=== PATIENT | male | born 1960 | race Caucasian/White ===

== ENCOUNTER 2022-05-06 16:19 | Outpatient (CLI) | payer BC, SELFPAY ==
--- NOTE | ~2022-05-06 | US_ITS ---
EXAMINATION: US venous doppler [facility] DATE: 05/06/2022 16:56 INDICATION: Swelling . TECHNIQUE: Grayscale images without and with compression and Doppler images of the left lower extremi ty veins were obtained. COMPARISON: None FINDINGS: The left common femoral vein, profunda femoral vein, femoral vein, popliteal vein, peroneal vein, pos terior tibial veins, lesser and greater saphenous veins are patent. IMPRESSION: 1. Patent left lower extremity veins. No evidence of deep venous thrombosis Reviewed, dictated and finalized at location K.
[2022-05-06 18:06] LABS: CRP 0.8 mg/dL (<1.0); Uric Acid 5.4 mg/dL (3.5-8.5)
[2022-05-06 18:07] LABS: Erythrocyte Sedimentation Rate 11 mm/hr (0-20)
[2022-05-06 19:10] LABS: Rheumatoid Factor < 8.6 IU/ML (<12)
== END 2022-05-06 16:20 | disposition home or self-care (01) ==
PROVIDERS: PCP Registered Nurse; Visit Provider Orthopaedic Surgery
DX: M25.562 Pain in left knee (principal)
CPT/HCPCS: 36415; 84550; 85652; 86038; 86140; 86430; 93971

== ENCOUNTER 2022-06-06 12:47 | Outpatient (CLI) | payer BC, SELFPAY ==
[2022-06-06 13:01] LABS: Basophils Absolute Auto 0.1 K/mm3 (0.0-0.1); Basophils Percent Auto 1.4 % (0.2-1.2); Eosinophils Absolute Auto 0.5 K/mm3 (0-0.3); Eosinophils Percent Auto 5.6 % (0-4.4); Hematocrit 43.9 % (42.0-52.0); Hemoglobin 14.5 g/dL (14.0-18.0); Immature Granulocyte Absolute 0.05 K/mm3 (0.00-0.031); Immature Granulocyte Percent A 0.5 % (0-0.5); Lymphocytes Absolute Auto 1.47 K/mm3 (0.9-3.2); Lymphocytes Percent Auto 15.4 % (18.3-44.2); Mean Corpuscular Hemoglobin 29.4 pg (26-34); Mean Corpuscular Volume 88.9 fl (80-100); Mean Platelet Volume 8.9 fl (7.4-10.4); Monocytes Absolute Auto 1.1 K/mm3 (0.1-0.6); Monocytes Percent Auto 11.4 % (2.6-8.5); Neutrophils Absolute Auto 6.3 K/mm3 (1.3-6.7); Neutrophils Percent Auto 65.7 % (45.5-73.1); Platelet Count Result 334 k/mm3 (150-375); Red Blood Count 4.94 M/mm3 (4.6-6.20); Red Cell Distribution Width 13.8 % (11.5-14.5); White Blood Count 9.5 K/mm3 (4.5-10.0)
== END 2022-06-06 12:48 | disposition home or self-care (01) ==
LOC: ANHLAB 12:48
PROVIDERS: PCP Registered Nurse; Visit Provider Orthopaedic Surgery
DX: M25.562 Pain in left knee (principal)
CPT/HCPCS: 36415; 85025

== ENCOUNTER → 2022-06-30 09:31 | Outpatient (CLI) | payer BC, SELFPAY ==
--- NOTE | ~2022-06-30 | MR_ITS ---
EXAMINATION: MR knee LT wo con DATE: 06/30/2022 10:16 INDICATION: Left knee pain. TECHNIQUE: Magnetic resonance imaging (MRI) of the left knee was performed without intravenous contra st. Sequences included axial PD-weighted FS FSE, coronal PD-weighted FSE and PD-weighted FS FSE, sagi ttal PD-weighted FSE, and sagittal T2-weighted FS FSE. COMPARISON: Left tibia and fibula radiographs 06/10/2022 FINDINGS: Medial compartment: Medial meniscus is normal. Tibial cartilage is normal. There is shallow partial-thickness cartilage l oss of femoral condyle involving the central articular surface. Lateral compartment: Lateral meniscus is normal. There is shallow partial-thickness cartilage loss of tibial condyle invol ving the central and posterior articular surface. There is deep partial thickness cartilage loss of f emoral condyle involving the central articular surface. Patellofemoral compartment: There is deep partial thickness cartilage loss of patellar medial and lateral facets and median ridge with mild subchondral edema-like marrow signal intensity and small subchondral cyst. There is partia l thickness cartilage loss of trochlea, deep at the medial and lateral trochlea with mild subchondral edema-like marrow signal intensity. Osteophytes are noted. Ligaments and tendons: The anterior and posterior cruciate ligaments are normal. There are changes of prior sprains of media l collateral ligament and fibular collateral ligament characterized by increased signal intensity pro ximally. There is mild patellar tendinopathy. Fluid: There is a small knee joint effusion. There is a small Stewart's cyst. There is mild prepatellar and hdez perficial infrapatellar bursitis. IMPRESSION: 1. 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 2. Small knee joint effusion. 3. Small Stewart's cyst. Reviewed, dictated and finalized at location A. IMPRESSION: 1. 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 2. Small knee joint effusion. 3. Small Stewart's cyst.
== END ==
PROVIDERS: PCP Registered Nurse; Visit Provider Orthopaedic Surgery
DX: M25.462 Effusion, left knee (principal); M71.22 Synovial cyst of popliteal space [Baker], left knee
CPT/HCPCS: 73721

== ENCOUNTER 2022-11-30 01:08 | Day surgery (SDC) | payer BC, SELFPAY ==
[2022-11-17 10:04] VITALS: BMI 36.8
--- NOTE | 2022-11-17 10:13 | PC.NURSE ---
Report to the Outpatient Waiting Room, entrance under the green pavilion located off [facility], at time 11:30 AM on date 11/30/22. Planned Procedure Time: 1:30 PM. Time changes happen often and if your time is changed the preop area will call you the afternoon before. - You and your visitor will be asked to self-screen and do not enter if you have any COVID symptoms. - Only one visitor is requested with a max of two and NO children visitors are allowed at this time. - The patient visitor may be requested to leave or wait in car when not with patient due to distancing restrictions. - A mask is optional within the hospital. Patients may have clear liquids (water, carbonated beverages, clear teas, apple juice) until 3 hours prior to surgery (10:30AM) with a maximum of 20 ounces. - No food from midnight until time of surgery Take the following medications with a SIP of water the morning of surgery: N/A PATIENT TAKES ALL MEDS AT BEDTIME Medications to discontinue per physician N/A Date to take last dose N/A Please no make-up, nail sudanese, hairspray, perfume, deodorant, or body powder the day of surgery. No jewelry (including any body piercings) or valuables the day of surgery, leave them at home. Please take a shower or bath the night before, or the morning of, surgery with an antibacterial soap. Wear comfortable, loose fitting clothing. - Jewelry must be removed prior to entering the operating room. Rings and piercings that are not removed may be cut off. - The hospital will not accept responsibility for valuables. - Please leave all valuables, including medications, at home the day of surgery. If you are going home after surgery, a licensed special education bus driver must drive you home. - NO public transportation without another adult if you receive anesthesia. - We recommend that an adult stay with you for 24 hours following discharge. - We also recommend that you do not drive, make important decision, drink alcoholic beverages, or take any drugs that were not prescribed by your health care provider for at least 24 hours after your discharge time. Follow any additional instructions given to you from your surgeon. If you or anyone in your household have experienced Covid symptoms in the past week, please notify your surgeon or the nurse liaison at the phone number below for possible testing. Telephone instructions given to PATIENT and asked if any additional questions and then verbalized understanding. Patient advised to call surgeon office or pre surgery nurse liaison [phone] if any additional questions.
[2022-11-30] VITALS (9 sets, daily range): BP systolic 136–155; BP diastolic 73–108; PULSE 61–79; RESP 10–18; TEMP 36.2–36.8; O2SAT 99–100
[2022-11-30] MEDS: KETOROLAC 15 MG/ML VIAL (*BKC) IV PUSH (12:20)
[2022-11-30] MEDS: ACETAMINOPHEN 500 MG TABLET 1000 MG PO (12:20)
[2022-11-30] MEDS: LACTATED RINGERS 1,000 ML 30 ML IV CONT (12:20)
--- NOTE | 2022-11-30 12:45 | P.PNAN_ITS ---
Anes - Initial Pre Proc Eval Procedure: Operation Date: 11/30/22 13:30 Proposed Procedures p Diagnostic Left Knee Arthroscopy, Proceed As Indicated - Kaveh Joyner MD Date/Time: 11/30/22 12:45 Surgeon: Kaveh Joyner MD Pre Op Diagnosis: Lt Knee Pain Patient Data Age: 62 Gender: M Height: 1.8 m Weight: 123 kg Last Vital Signs Temp 36.2 C L 11/30/22 12:27 Pulse 66 11/30/22 12:27 Resp 14 11/30/22 12:27 BP 149/73 H 11/30/22 12:27 Pulse Ox 99 11/30/22 12:27 O2 Del Method Room Air 11/30/22 12:27 Allergies Allergy/AdvReac Type Severity Reaction Status Date / Time prednisone AdvReac Severe Anxiety Verified 11/18/22 13:00 hydrocodone AdvReac Mild Hallucinati Verified 11/18/22 13:00 ng meloxicam AdvReac Mild Hypertensio Verified 11/18/22 13:00 n meperidine AdvReac Mild Hallucinati Verified 11/18/22 13:00 ng Home Medications Medication Instructions Recorded Confirmed Type gabapentin 600 mg tablet 600 mg PO DAILY 05/07/22 11/18/22 History (Neurontin) ropinirole 0.25 mg tablet 0.25 mg PO BID 05/07/22 11/18/22 History zolpidem 5 mg tablet (Ambien) 10 mg PO QHS PRN Insomnia 05/07/22 11/18/22 History albuterol 90 mcg/actuation aerosol 90 mcg inhalation PRN PRN 11/17/22 11/18/22 History inhaler Shortness Of Breath budesonide-formoterol HFA 160 1 puff inhalation PRN PRN Wheezing 11/17/22 11/18/22 History mcg-4.5 mcg/actuation aerosol inhaler (Symbicort) Patient hx anesthesia problems: none Family hx anesthesia problems: none Results Review: All pre-operative results and documents have been reviewed as part of the pre- operative evaluation. [facility] Past Medical History Medical History (Updated 11/30/22 @ 12:45 by Mir Alfred MD) Allergies Asthma Obesity Surgical History Surgical History History of colon surgery History of hernia repair History of shoulder surgery History of surgery on wrist History of tonsillectomy Hx of LASIK Social History Social History Smoking status: Never smoker Second hand tobacco smoke exposure: No Alcohol intake: never Substance use: never Substance use type: does not use Living arrangements: with family Anes - Eval Final PreProcedure Day of Procedure 11/30/22 12:45 Patient weight: obese Heart: regular rate and rhythm Lungs: clear to auscultation Airway: Mallampati scale class II Neurological: alert and oriented Last oral intake: >/= 8 hours ASA classification: III Emergent: no Anesthetic plan: proceed Anesthesia type and monitoring: general LMA and standard monitoring Results Review: All pre-operative results and documents have been reviewed as part of the pre- operative evaluation. Informed Consent: The patient's anesthetic plan and its attendant risks and benefits were discussed with the patient/family/POA. Questions were solicited and answers provided to the satisfaction of the patient/family/POA.
--- NOTE | 2022-11-30 13:12 | WPDHPUPDATE1 ---
History and Physical Update Update Date/Time: 11/30/22 13:12 History and Physical has been reviewed, including an updated exam of the patient. There are NO changes in the patient's condition. Risks, benefits, and alternatives have been discussed and questions answered. Patient agrees to proceed with procedure.
[2022-11-30] MEDS: ceFAZolin 3 GM/D5W 100 ML 100 ML IVPB (13:24)
[2022-11-30] MEDS: LIDOCAINE 1% BUFFERED WITH 8.4% SODIUM BICARB 1 ML SYRINGE 10 ML INFILTRATE (13:53)
--- NOTE | 2022-11-30 14:36 | W.PM.PROC2 ---
Procedure Note - Detailed Date of Procedure 11/30/22 Pre-op Diagnosis Lt Knee Pain Post-op Diagnosis Other ( synovitis left knee with medial meniscal tear) Procedure Performed left knee arthroscopy, extensive synovectomy, partial medial meniscectomy Surgeon Kaveh Joyner MD Anesthesia General Description of Procedure The patient was identified and proper site identified and he was taken to the operating room, transferred to the OR table placing him supine taking care to pad the torso and extremities. After general anesthetic induction and intubation, a nonsterile tourniquet was placed high on the left thigh but was not inflated. The left lower extremity was positioned, prepped and draped in usual sterile fashion. 10 cc of 1% lidocaine was injected into the subcutaneous tissue in the area of the portals at start of the procedure, and an additional 10 at the end. The portals were established and the arthroscopy was carried out. there was extensive areas of synovitis anteriorly particularly corresponding to where he was having pain. There is also tearing of the medial meniscus. Tricompartmentally there was cartilage deterioration but most pronounced in the anterior compartment. Medial meniscus was contoured back to a stable rim. Extensive synovectomy was carried out in the anterior portion is well as the lateral gutter and suprapatellar pouch. the ArthroCare Wand was used for intra-articular hemostasis. The knee was flushed with a copious amount of arthroscopic fluid and equipment was removed. Portals were closed with three O nylon suture and a sterile dressing was applied. He tolerated the procedure well, was awakened, extubated and taken to recovery area in stable condition. There were no known intraoperative complications. Estimated blood loss was negligible; he received perioperative antibiotics. Estimated Blood Loss -20.0 Tourniquet Time 0 Drains No Packing No Pathology None sent Complications No immediate complications Condition Stable Disposition PACU [facility] Billing Surgery - Charge Forward: Surgery Billing ([id number]; [id number])
[2022-11-30] MEDS: fentaNYL CITRATE INJ (*CRX) 100 MCG/2 ML VIAL 25 MCG IV PUSH ×4 (14:41→14:51)
[2022-11-30] MEDS: oxyCODONE HCL (*CRX) 5 MG TAB IR PO (15:55)
== END 2022-11-30 16:51 | disposition home or self-care (01) ==
PROVIDERS: PCP Registered Nurse; Visit Provider Orthopaedic Surgery
PROC: (CPT 29870; principal; 2022-11-30 13:30)
DX: M65.862 Other synovitis and tenosynovitis, left lower leg (principal); M23.332 Other meniscus derangements, other medial meniscus, left knee; J45.909 Unspecified asthma, uncomplicated; Z79.51 Long term (current) use of inhaled steroids; E66.9 Obesity, unspecified; Z68.37 Body mass index [BMI] 37.0-37.9, adult
CPT/HCPCS: 29881; 29876; A9270; J0690; J1100; J1885; J2250; J2405; J2704; J3010; J7120